=== PATIENT | female | born 1985 | race Caucasian/White ===

== ENCOUNTER → 2016-09-18 | Outpatient (CLI) | payer OTHER ==
[2016-09-18 09:44] LABS: HEMATOCRIT 41.8 % (35.0-45.0); HEMOGLOBIN 13.8 gm/dL (12.0-16.0); MEAN CELL VOLUME 88.8 FL (83-96); MEAN CORPUSCULAR HEMOGLOBIN 29.3 PG (28-34); MEAN PLATELET VOLUME 8.9 FL (6.5-11.5); RED BLOOD COUNT 4.71 X10e (3.90-5.30); RED CELL DISTRIBUTION WIDTH 13.4 % (11.0-15.5)
[2016-09-18 11:47] LABS: ALBUMIN SERUM 4.3 g/dL (3.5-5.0); BILIRUBIN,TOTAL 0.6 mg/dL (0.2-2.0); BUN/CREATININE RATIO 17.5; CALCIUM SERUM 9.1 mg/dL (8.4-10.2); CREATININE SERUM 0.8 mg/dL (0.6-1.4); POTASSIUM 3.9 mmol/L (3.5-5.1); PROTEIN TOTAL SERUM 7.1 g/dL (6.0-8.3)
[2016-09-18 12:11] LABS: THYROID STIMULATING HORMONE 1.21 uIU/ml (0.34-5.60)
[2016-09-18 12:20] LABS: T3 UPTAKE REF; T4 (THYROXINE) REF
[2016-09-18 22:28] LABS: FREE THYROXIN (T4) 0.87 ng/dL (0.58-1.64)
== END | disposition home or self-care (01) ==
LOC: SLAB 09:16
PROVIDERS: Nurse Practitioner Family
DX: R63.5 Abnormal weight gain (principal); R60.0 Localized edema; R53.83 Other fatigue
CPT/HCPCS: 80053; 84436; 84439; 84443; 84479; 85027